=== PATIENT | female | born 1950 | race American Indian/Alaskan Native ===

== ENCOUNTER 2019-11-19 00:15 | Emergency (ER) | payer MEDICARE ==
[2019-11-19 02:14] LABS: Basophils # (Auto) 0.1 K/mm3 (0.0-0.1); Basophils % (Auto) 1.1 % (0.0-1.8); Eosinophils # (Auto) 0.2 K/mm3 (0.0-0.4); Eosinophils % (Auto) 2.3 % (0.0-4.3); Hematocrit 32.3 % (30.3-42.9); Hemoglobin 10.5 gm/dl (10.1-14.3); Lymphocytes # (Auto) 3.5 K/mm3 (1.2-5.4); Lymphocytes % (Auto) 36.3 % (13.4-35.0); Mean Corpuscular HGB Conc 33 % (30-34); Mean Corpuscular Volume 88 fl (79-97); Monocytes # (Auto) 0.5 K/mm3 (0.0-0.8); Monocytes % (Auto) 5.6 % (0.0-7.3); Platelet Count 338 K/mm3 (140-440); Red Blood Count 3.67 M/mm3 (3.65-5.03); Red Cell Distribution Width 14.9 % (13.2-15.2)
--- NOTE | 2019-11-19 07:20 | Cat Scan Report ---
CT head/brain wo con INDICATION: MAIN: RT arm paresthesia/ RT ARM PAIN. TECHNIQUE: All CT scans at this location are performed using CT dose reduction for ALARA by means of automated e xposure control. COMPARISON: None available. FINDINGS: Minimal mucosal thickening in the right maxillary antrum. Other visualized paranasal and mastoid sinu ses are clear. Ventricles are symmetrical and normal in size. No mass, hemorrhage or other significant abnormality. IMPRESSION: 1. No acute abnormality. Signer Name: Modesto Phan MD Signed: 11/19/2019 7:15 AM Workstation Name: [id number]
[2019-11-19 07:46] LABS: INR 0.97 (0.87-1.13); Partial Thromboplastin Time 28.4 Sec. (24.2-36.6)
[2019-11-19 08:16] LABS: Creatine Kinase MB 2.8 ng/mL (0.0-4.0)
--- NOTE | 2019-11-19 09:13 | Emergency Department Report ---
ED General Adult HPI - General Chief complaint: Extremity Problem,Nontraumatic Stated complaint: RT ARM PAIN Time Seen by Provider: 11/19/19 06:15 Source: patient Mode of arrival: Ambulatory Limitations: No Limitations - History of Present Illness Initial comments: This is a 69-year-old female that states that she had pain in her left biceps area for 9 days ago. She states that her right biceps has been bothering her for the past 2 days. She called her doctor yesterday because she had tingling in her right arm. She denies any distal hand or forearm pain. She denies any weakness. She denies any focal neurological symptoms. She denies any swelling. She states that her doctor told her that she might have a "CVT". I presume the doctor raised a concern for a DVT. However this appears to be exceedingly unlikely on a clinical basis and considering her history. Patient does state that she is on 2 new medicines to include a medicine for cholesterol and a proton inhibitor. She has had a history of low potassium in the past. She does not give a history of diabetic neuropathy. -: Gradual, week(s) Location: upper extremity Radiation: non-radiation Quality: other (Tingling and aching) Consistency: intermittent Improves with: none Worsens with: none Associated Symptoms: denies other symptoms - Related Data Previous Rx's Medication Instructions Recorded Last Taken Type Magnesium Oxide 400 mg PO DAILY #30 tablet 11/19/19 Unknown Rx Allergies Allergy/AdvReac Type Severity Reaction Status Date / Time CONTRAST DYE Allergy Itching Uncoded 11/19/19 01:54 ED Review of Systems ROS: Stated complaint: RT ARM PAIN Other details as noted in HPI Constitutional: denies: chills, fever Eyes: denies: eye pain, eye discharge, vision change ENT: denies: ear pain, throat pain Respiratory: denies: cough, shortness of breath, wheezing Cardiovascular: denies: chest pain, palpitations Endocrine: no symptoms reported Gastrointestinal: denies: abdominal pain, nausea, diarrhea Genitourinary: denies: urgency, dysuria, discharge Musculoskeletal: as per HPI, myalgia. denies: back pain, joint swelling, arthralgia Skin: denies: rash, lesions Neurological: denies: headache, weakness, paresthesias Psychiatric: denies: anxiety, depression Hematological/Lymphatic: denies: easy bleeding, easy bruising ED Past Medical Hx - Past Medical History Previous Medical History?: Yes Hx Hypertension: Yes Hx Congestive Heart Failure: Yes Hx Diabetes: Yes Additional medical history: CHOLESTEROL - Surgical History Past Surgical History?: Yes Hx Cholecystectomy: Yes Additional Surgical History: THYROID, BLATERAL CATARACTS, HYSTERECTOMY - Social History Smoking Status: Never Smoker Substance Use Type: None - Medications Home Medications: Home Medications Medication Instructions Recorded Confirmed Last Taken Type Magnesium Oxide 400 mg PO DAILY #30 tablet 11/19/19 Unknown Rx ED Physical Exam - General Limitations: No Limitations General appearance: alert, in no apparent distress - Head Head exam: Present: atraumatic, normocephalic - Eye Eye exam: Present: normal appearance. Absent: scleral icterus - ENT ENT exam: Present: mucous membranes moist - Neck Neck exam: Present: normal inspection - Respiratory Respiratory exam: Present: normal lung sounds bilaterally. Absent: respiratory distress - Cardiovascular Cardiovascular Exam: Present: regular rate, normal rhythm. Absent: systolic murmur, diastolic murmur, rubs, gallop - GI/Abdominal GI/Abdominal exam: Present: soft, normal bowel sounds. Absent: distended, tenderness, guarding, rebound, rigid - Extremities Exam Extremities exam: Present: normal inspection, full ROM, normal capillary refill, other (Radial pulse 2+ 2+. No evidence of vascular abnormality found.). Absent: tenderness, pedal edema, joint swelling, calf tenderness - Back Exam Back exam: Present: normal inspection - Neurological Exam Neurological exam: Present: alert, oriented X3, CN II-XII intact. Absent: motor sensory deficit - Psychiatric Psychiatric exam: Present: normal affect, normal mood - Skin Skin exam: Present: warm, dry, intact, normal color. Absent: rash ED Course Vital Signs 11/19/19 11/19/19 11/19/19 01:54 06:14 06:16 Temperature 98.4 F 97.8 F Pulse Rate 75 73 71 Respiratory 16 15 13 Rate Blood Pressure Blood Pressure 134/58 [Left] O2 Sat by Pulse 98 96 98 Oximetry 11/19/19 11/19/19 11/19/19 06:17 06:31 06:53 Temperature Pulse Rate 74 Respiratory 10 L 11 L Rate Blood Pressure 145/65 145/65 Blood Pressure 145/65 [Left] O2 Sat by Pulse 100 99 Oximetry 11/19/19 07:25 Temperature Pulse Rate 73 Respiratory 11 L Rate Blood Pressure Blood Pressure 144/74 [Left] O2 Sat by Pulse 99 Oximetry - Reevaluation(s) Reevaluation #1: Patient appears to be having myalgias. She does not have rhabdomyolysis. Her hypomagnesemia may be related to a proton inhibitor or diuretic. She will be placed on supplemental potassium. I will check an EKG prior to discharge. CT of her head shows no explanation for her right arm paresthesias. This may be related to diabetes. She appears appropriate for outpatient disposition and follow-up. Will check an EKG as above. 11/19/19 09:19 ED Medical Decision Making - Lab Data Result diagrams: 11/19/19 02:02 11/19/19 02:02 Laboratory Results - last 24 hr 11/19/19 11/19/19 11/19/19 02:02 02:02 07:16 WBC 9.8 RBC 3.67 Hgb 10.5 Hct 32.3 MCV 88 MCH 29 MCHC 33 RDW 14.9 Plt Count 338 Lymph % (Auto) 36.3 H Hart % (Auto) 5.6 Eos % (Auto) 2.3 Baso % (Auto) 1.1 Lymph # 3.5 Hart # 0.5 Eos # 0.2 Baso # 0.1 Seg Neutrophils % 54.7 Seg Neutrophils # 5.4 PT 13.0 INR 0.97 APTT 28.4 D-Dimer 220.02 Sodium 139 Potassium 4.1 Chloride 100.4 Carbon Dioxide 24 Anion Gap 19 BUN 24 H Creatinine 1.1 Estimated GFR 60 BUN/Creatinine Ratio 22 Glucose 60 L Calcium 9.0 Magnesium Total Creatine Kinase CK-MB (CK-2) CK-MB (CK-2) Rel Index 11/19/19 07:16 WBC RBC Hgb Hct MCV MCH MCHC RDW Plt Count Lymph % (Auto) Hart % (Auto) Eos % (Auto) Baso % (Auto) Lymph # Hart # Eos # Baso # Seg Neutrophils % Seg Neutrophils # PT INR APTT D-Dimer Sodium Potassium Chloride Carbon Dioxide Anion Gap BUN Creatinine Estimated GFR BUN/Creatinine Ratio Glucose Calcium Magnesium 1.40 L Total Creatine Kinase 170 H CK-MB (CK-2) 2.8 CK-MB (CK-2) Rel Index 1.6 - EKG Data -: EKG Interpreted by Me EKG shows normal: sinus rhythm, axis, intervals, QRS complexes, ST-T waves Rate: normal - EKG Data Interpretation: nonspecific ST-T wave abhay Critical care attestation.: If time is entered above; I have spent that time in minutes in the direct care of this critically ill patient, excluding procedure time. ED Disposition Clinical Impression: Hypomagnesemia, Myalgia, Paresthesia, Hypoglycemia Type 2 diabetes mellitus Qualifiers: Diabetes mellitus residential insulin use: with residential use Diabetes mellitus complication status: without complication Qualified Code(s): E11.9 - Type 2 diabetes mellitus without complications Disposition: DC- TO HOME OR SELFCARE Is pt being admited?: No Does the pt Need Aspirin: No Condition: Stable Instructions: Diabetes Mellitus Type 2 in Adults (ED), Hypomagnesemia (ED), Diabetic Hypoglycemia (ED) Additional Instructions: Follow-up with your primary care physician and diabetes manager. Supplemental magnesium. Return to the emergency department any acute change or problem. Monitor your blood sugar. Prescriptions: Magnesium Oxide 400 mg PO DAILY #30 tablet Referrals: EDWARD MADDEN MD [Primary Care Provider] - 3-5 Days Time of Disposition: 10:26
[2019-11-19] MEDS ORDERED: MAGNESIUM OXIDE 400 MG TAB PO ONE (09:16)
[2019-11-19 10:36] VITALS: BP 145/84
== END 2019-11-19 10:56 | disposition home or self-care (01) ==
LOC: ED 00:15
DX: E83.42 Hypomagnesemia (principal); M79.18 Myalgia, other site; R20.2 Paresthesia of skin; E11.649 Type 2 diabetes mellitus with hypoglycemia without coma; I11.0 Hypertensive heart disease with heart failure; I50.9 Heart failure, unspecified; Z98.890 Other specified postprocedural states; Z90.710 Acquired absence of both cervix and uterus; Z79.899 Other long term (current) drug therapy; Z88.8 Allergy status to other drugs, medicaments and biological substances
CPT/HCPCS: 36415; 70450; 80048; 82550; 82553; 83735; 85025; 85379; 85610; 85730; 93005; 93010

== ENCOUNTER 2020-07-24 09:26 | Outpatient (CLI) | payer MEDICARE ==
[2020-07-24 10:24] LABS: Blood Urea Nitrogen 21 mg/dL (7-17)
== END 2020-07-24 09:27 | disposition home or self-care (01) ==
LOC: CT 09:26
PROVIDERS: ATTEND Surgery Vascular Surgery
DX: I65.21 Occlusion and stenosis of right carotid artery (principal)
CPT/HCPCS: 36415; 82565; 84520